=== PATIENT | male | born 1950 | race Caucasian/White ===

== ENCOUNTER → 2016-02-11 | Outpatient (CLI) | payer OTHER ==
[2016-02-11 13:43] LABS: BASO % 0.4 %; BASO ABS # 0.04 K/uL (0-0.2); COMPLETE YES; EOS % 1.8 %; IG% 0.3 %; LYMPH % 33.5 %; LYMPH ABS # 3.01 K/uL (1.2-3.4); MEAN CELL VOLUME 84.6 fL (80-100); MEAN CORPUSCULAR HEMOGLOBIN 29.4 pg (25-34); MEAN CORPUSCULAR HGB CONC 34.8 g/dl (32-36); MEAN PLATELET VOLUME 10.1 fL (7.4-10.4); MONO % 8.9 %; NEUT % 55.1 %; PLATELET COUNT 245 K/uL (130-400); RED BLOOD COUNT 5.44 M/uL (4.7-6.1); WHITE BLOOD COUNT 8.99 K/uL (4.8-10.8)
== END | disposition home or self-care (01) ==
LOC: C.LABMFLN 13:28
PROVIDERS: ATTEND Family Medicine
DX: D72.829 Elevated white blood cell count, unspecified (principal)

== ENCOUNTER → 2017-04-28 | Outpatient (CLI) | payer OTHER ==
[2017-04-28 12:45] LABS: BASO % 0.9 %; BASO ABS # 0.06 K/uL (0-0.2); EOS % 4.1 %; EOS ABS # 0.29 K/uL (0-0.5); HEMATOCRIT 42.4 % (42-52); HEMOGLOBIN 14.6 g/dL (14.0-18.0); IG# 0.01 K/uL (0.00-0.02); LYMPH % 40.8 %; LYMPH ABS # 2.85 K/uL (1.2-3.4); MEAN CELL VOLUME 83.5 fL (80-100); MEAN CORPUSCULAR HEMOGLOBIN 28.7 pg (25-34); MEAN CORPUSCULAR HGB CONC 34.4 g/dl (32-36); MEAN PLATELET VOLUME 10.2 fL (7.4-10.4); MONO % 10.7 %; MONO ABS # 0.75 K/uL (0.11-0.59); NEUT % 43.4 %; NEUT ABS # 3.03 K/uL (1.4-6.5); PLATELET COUNT 243 K/uL (130-400); RED CELL DISTRIBUTION WIDTH CV 14.3 % (11.5-14.5); WHITE BLOOD COUNT 6.99 K/uL (4.8-10.8)
[2017-04-28 13:03] LABS: ALT/SGPT 42 U/L (12-78); AST/SGOT 23 U/L (15-37); BLOOD UREA NITROGEN 16 mg/dl (7-18); CARBON DIOXIDE 28 mmol/L (21-32); GLUCOSE 117 mg/dl (70-99); POTASSIUM 3.9 mmol/L (3.5-5.1); SODIUM 137 mmol/L (136-145)
[2017-04-28 13:14] LABS: ALKALINE PHOSPHATASE 98 U/L (45-117); CHOLESTEROL 188 mg/dl (0-200); LDL CHOLESTEROL CALCULATED 80 mg/dl; TOTAL PROTEIN 7.8 gm/dl (6.4-8.2)
[2017-04-28 13:22] LABS: HEMOGLOBIN A1C 6.5 % (4.5-5.6)
== END | disposition home or self-care (01) ==
LOC: C.LABMFLN 09:24
PROVIDERS: ATTEND Family Medicine
DX: E78.5 Hyperlipidemia, unspecified (principal); I10 Essential (primary) hypertension; R73.03 Prediabetes

== ENCOUNTER → 2017-09-01 | Outpatient (CLI) | payer OTHER | END | disposition home or self-care (01) | LOC: C.LABMFLN 09:50 | PROVIDERS: ATTEND Urology | DX: Z80.42 Family history of malignant neoplasm of prostate (principal) ==